=== PATIENT | male | born 1975 | race Caucasian/White ===

== ENCOUNTER 2019-08-07 05:03 | Emergency (ER) | payer OTHER, BC ==
[2019-08-07] MEDS ORDERED: PREDNISONE 20 MG TABLET PO ONE (06:36)
--- NOTE | 2019-08-07 06:43 | ER Document Report ---
ED Extremity Problem, Lower - General Chief Complaint: Low Back Pain Stated Complaint: BACK PAIN Time Seen by Provider: 08/07/19 06:13 Mode of Arrival: Ambulatory Information source: Patient Notes: This 43-year-old male patient comes emergency room complaining of pain and numbness going down his left lower extremity with foot drop. He reports she was going upstairs at work 2 evenings ago, and tripped. He did catch himself but he feels it agitated his chronic low back problem. This morning he woke up and noted the pain and numbness was much worse and he had developed left foot drop. The pain is primarily in the left buttock going down the back of the left thigh and leg. Past history is significant for an injury in the in 2016 resulting in a mini discectomy and shortly afterwards a repeat mini discectomy. He does not recall what nerve root or level was involved but he did have similar symptoms with the numbness to the lower extremity and the foot drop. He did have an MRI at the end of 2016 or early 2017 in [facility] that showed scar tissue developing around the original surgery area and was told he may have problems in the future. 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 Lives with: Family Family History: Reviewed & Not Pertinent Patient has suicidal ideation: No Patient has homicidal ideation: No - Medical History Medical History: Negative Past Surgical History: Reports: Hx Orthopedic Surgery - Microdiscectomy lumbar spine x2 in 2016, Hx Tonsillectomy, Other - Left tympanoplasty Review of Systems - Review of Systems Constitutional: No symptoms reported EENT: No symptoms reported Cardiovascular: No symptoms reported Respiratory: No symptoms reported Gastrointestinal: No symptoms reported Genitourinary: No symptoms reported Male Genitourinary: No symptoms reported Musculoskeletal: See HPI, Back pain Skin: No symptoms reported Hematologic/Lymphatic: No symptoms reported Neurological/Psychological: See HPI, Numbness Physical Exam - Vital signs Vitals: Temp Pulse Resp BP Pulse Ox 97.5 F 65 20 120/62 99 08/07/19 05:07 08/07/19 05:07 08/07/19 05:07 08/07/19 05:07 08/07/19 05:07 Interpretation: Normal - General General appearance: Appears well, Alert In distress: Mild - HEENT Head: Normocephalic, Atraumatic Eyes: Normal Pupils: PERRL - Respiratory Respiratory status: No respiratory distress Breath sounds: Normal - Cardiovascular Rhythm: Regular Heart sounds: Normal auscultation Murmur: No - Abdominal Inspection: Normal Tenderness: Nontender - Back Back: Nontender - There is no tenderness to palpate the areas where he feels the pain deep inside with any sort of movement. - Extremities General upper extremity: Normal inspection General lower extremity: Other - On left straight leg raising, the patient cannot hold the leg up for very long due to pain in the left buttock region. Plantarflexion is intact, dorsiflexion is weak and limited on the left. - Neurological Neuro grossly intact: Yes - Except for the left dorsiflexion weakness - Psychological Associated symptoms: Normal affect, Normal mood - Skin Skin Temperature: Warm Skin Moisture: Dry Skin Color: Normal Course - Vital Signs Vital signs: Temp Pulse Resp BP Pulse Ox 97.5 F 65 18 120/62 99 08/07/19 05:12 08/07/19 05:12 08/07/19 05:12 08/07/19 05:12 08/07/19 05:12 - Diagnostic Test Radiology reviewed: Image reviewed, Reports reviewed - MRI of the lumbar spine shows significant left paracentral/proximal foraminal disc herniation at L4-5 flattening the thecal sac at the takeoff of the proximal left L5 nerve root in the lateral recess. Discharge - Discharge Clinical Impression: Sciatica due to displacement of lumbar intervertebral disc, Foot drop, left foot Condition: Stable Disposition: HOME, SELF-CARE Additional Instructions: Sciatica Your symptoms suggest "sciatica." The pain of sciatica typically radiates down the leg. Numbness in the foot or calf may also occur. Sciatica is caused by irritation of the sciatic nerve or its branches. The irritation can be due to a herniated disk in the spine, swelling and inflammation in the muscles surrounding the sciatic nerve, or direct injury of the nerve itself. Most cases of sciatica will resolve with medical treatment. Bed rest is usually recommended initially. Surgery is only necessary when the condition will not improve with rest and antiinflammatory medication. Muscle relaxers are often given if muscle soreness is present. A CAT scan of the back may be performed if a herniated disk is suspected. Re-examination is necessary if you develop increasing numbness, localized weakness in the foot or ankle, or if the pain does not respond to rest. The MRI does show significant disc herniation with compression of the left L5 nerve root which is causing your numbness and foot drop sensation. Start the prednisone as prescribed tomorrow. Take ibuprofen 600 mg every 8 hours. Rest and avoid positions that worsen your discomfort. Use your foot drop brace to protect against tripping. Follow-up with the [facility] for referral to a spine surgeon. Prescriptions: Prednisone [Deltasone 10 mg Tablet] 10 mg PO ASDIR PRN #21 tablet PRN Reason:
--- NOTE | 2019-08-07 09:53 | RADIOLOGY REPORT (SQ) ---
EXAM DESCRIPTION: MRI LUMBAR SPINE WITHOUT COMPLETED DATE/TIME: 08/07/2019 9:30 am REASON FOR STUDY: L foot drop, LLE numbness, prior discectomy COMPARISON: None. TECHNIQUE: Sagittal and Axial imaging includes T1, T2, STIR and gradient echo sequences. Coronal T2/ HASTE imaging. LIMITATIONS: None. FINDINGS: VISUALIZED UPPER ABDOMEN: Limited evaluation. No acute or suspicious findings suggested. SEGMENTATION: No transitional anatomy. The lowest well-developed disc space is labeled L5-S1. ALIGNMENT: Anatomic. VERTEBRAE: Intact. BONE MARROW: Fatty reactive vertebral body endplate changes at L4-5 DISC SIGNAL: Normal. No significant abnormal signal or loss of height. POSTERIOR ELEMENTS: Left micro laminectomy defect at L4 HARDWARE: None in the spine. CORD AND CONUS: Normal in size and signal intensity. Conus at the T12-L1 level. SOFT TISSUES: No aortic aneurysm seen. No bulky retroperitoneal adenopathy or mass. No paraspinal mas s or fluid. T11-12: Mild bilateral facet hypertrophy. No central or foraminal stenosis T12-L1: Mild bilateral facet hypertrophy. No central or foraminal stenosis L1-L2: Mild bilateral facet hypertrophy. No central or foraminal stenosis L2-L3: Minimal posterior disc bulging. Mild bilateral facet hypertrophy. No significant central or foraminal stenosis L3-L4: Minimal posterior disc bulging. Mild bilateral facet hypertrophy. No central or foraminal st enosis L4-L5: Old left micro laminectomy. There is a moderate size central and left paracentral disc hernia tion with inferior migration of the extruded disc material, flattening the thecal sac at the takeoff of the left proximal L5 nerve root in the lateral recess. This is best shown on axial T2 images 24-2 7 and sagittal T2 image 9. At L4-5 there is moderate central canal narrowing with effacement of the CSF around the lumbar nerve roots from extruded disc fragment and moderate bilateral facet and ligament hypertrophy. Mild right inferior foraminal narrowing without exiting L4 nerve root impingement. Moderate left L4-5 foraminal narrowing with partial effacement of fat around the exiting left L4 nerve root. L5-S1: Mild diffuse posterior disc bulging is present with a small left proximal foraminal disc protr usion/ herniation. This causes mild inferior left L5-S1 foraminal narrowing without exit left L5 ner ve root impingement, best shown on axial image 31, sagittal image 11 and coronal image 13. Elsewhere at L5-S1, there is no central canal stenosis. No significant right foraminal narrowing. SACRUM: Visualized upper sacrum intact. OTHER: No other significant findings. IMPRESSION: Significant left paracentral/proximal foraminal disc herniation at L4-5, flattening the thecal sac at the takeoff of the proximal left L5 nerve root in the lateral recess TECHNICAL DOCUMENTATION: JOB ID: [id number] [employer]- All Rights Reserved Reading location - IP/workstation name: [email or web address]
[2019-08-07 10:26] VITALS: BP 128/61
== END 2019-08-07 10:36 | disposition home or self-care (01) ==
LOC: ER 05:03
DX: S33.141A Dislocation of L4/L5 lumbar vertebra, initial encounter (principal); W18.40XA Slipping, tripping and stumbling without falling, unspecified, initial encounter; Y99.0 Civilian activity done for income or pay; Z98.890 Other specified postprocedural states
CPT/HCPCS: 99283; 72148; J7512

== ENCOUNTER → 2020-05-11 | Outpatient (CLI) | payer OTHER ==
--- NOTE | 2020-05-11 12:49 | RADIOLOGY REPORT (SQ) ---
EXAM DESCRIPTION: CT BONE LENGTH IMAGES COMPLETED DATE/TIME: 05/11/2020 7:23 am REASON FOR STUDY: LLD Q72.819 CONGENITAL SHORTENING OF UNSPECIFIED LOWER LIMB COMPARISON: None. TECHNIQUE: CT scanogram of the bilateral lower extremities is performed including pelvis to ankles. Measurements of femur, tibia, and entire lower extremities performed by the radiologist and saved to PACS. All CT scanners at this facility use dose modulation, iterative reconstruction, and/or weight based d osing when appropriate to reduce radiation dose to as low as reasonably achievable (ALARA). [facility]: Dose Right [facility]: CareDose [facility]: Dose Right [facility]: Teradose 4D [facility]: [employer] RADIATION DOSE: mGy. LIMITATIONS: None. FINDINGS: RIGHT: FEMUR: 45.7 cm. TIBIA: 36.8 cm. TOTAL RIGHT LOWER EXTREMITY LENGTH (INCLUDES THE KNEE JOINT SPACE): 82 cm. LEFT: FEMUR: 45.6 cm. TIBIA: 37.1 cm. TOTAL LEFT LOWER EXTREMITY LENGTH (INCLUDES THE KNEE JOINT SPACE): 82.4 cm. IMPRESSION: LEG LENGTH MEASUREMENTS DETAILED ABOVE. TECHNICAL DOCUMENTATION: JOB ID: [id number] Quality ID # [id number]: Final reports with documentation of one or more dose reduction techniques (e.g., Au tomated exposure control, adjustment of the mA and/or kV according to patient size, use of iterative reconstruction technique) 2010 [email or web address]- All Rights Reserved Reading location - IP/workstation name: [email or web address]
== END ==
LOC: RAD 07:10
PROVIDERS: ATTEND Podiatrist Foot & Ankle Surgery
DX: Q72.819 Congenital shortening of unspecified lower limb (principal)
CPT/HCPCS: 77073